=== PATIENT | male | born 1960 | race Caucasian/White ===

== ENCOUNTER 2023-10-21 23:03 | Inpatient (IN) | payer OTHER ==
[~2023-10-21] VITALS: Ht 190.5 cm; Wt 72.6 kg
[~2023-10-21 23:03] MED LIST: AMLO5TAB4 PO; ASPI-1026 PO; ATOR40TA69 PO; CLOP-31 PO; CYAN-52 PO; FAMO-136 PO; FOLI1 PO
[2023-10-21 23:54] LABS: CREATININE 1.4 mg/dL (0.5-1.3); POTASSIUM 3.1 mmol/L (3.5-5.1)
[2023-10-22] VITALS (14 sets, daily range): BP systolic 122–154; BP diastolic 57–92; PULSE 55–78; RESP 18–20; O2SAT 97–100
[2023-10-22] LABS: BASOPHILS % (AUTO) 0.8 % (0.0-5.0); EOSINOPHILS # (AUTO) 2.11 K/uL (0.00-0.70); EOSINOPHILS % (AUTO) 8.9 % (0.0-8.0); IMMATURE GRANULOCYTE ABSOLUTE 0.15 K/uL (0-1); INR 1.06 (0.85-1.15); LYMPHOCYTES # (AUTO) 3.4 K/uL (1.0-4.8); LYMPHOCYTES % (AUTO) 14.3 % (21.0-51.0); MEAN CORPUSCULAR HGB CONC 25.7 g/dL (32.0-36.0); MEAN CORPUSCULAR VOLUME 58.3 fL (79-99); MONOCYTES # (AUTO) 2.1 K/uL (0.1-1.0); MONOCYTES % (AUTO) 8.8 % (3.0-13.0); NEUTROPHILS # (AUTO) 15.7 K/uL (1.8-7.7); NEUTROPHILS % (AUTO) 66.6 % (40.0-77.0); NUCLEATED RED BLOOD CELLS 34.5 % (0.0-0.19); PROTHROMBIN TIME 12.4 SEC (9.6-11.6); RED BLOOD CELL COUNT(AUTO) 3.21 MIL/uL (4.50-6.20); RED CELL DISTRIBUTION WIDTH 23.3 % (11.0-15.5); WHITE BLOOD COUNT (AUTO) 23.6 K/uL (4.8-10.8)
[2023-10-22 00:02] LABS: HEMATOCRIT 18.7 % (42-54); PLATELET COUNT (AUTO) 1295 K/uL (130-400)
[2023-10-22] MEDS: MORPHINE 2 MG SYG IVP ONE (00:27)
[2023-10-22 00:36] LABS: EOSINOPHILS % (MANUAL) 9 % (1-6); LYMPHOCYTES % (MANUAL) 12 % (22-44); MONOCYTES % (MANUAL) 1 % (2-9); SEGMENTED NEUTROPHILS % 78 % (40-70); TOTAL CELLS COUNTED 100
[2023-10-22 00:37] LABS: MAN.DIFF COMMENT-IMPRESSION MANUAL DIFFERENTIAL
[2023-10-22 00:39] LABS: PLATELET MORPHOLOGY COMMENT INCREASED
[2023-10-22 00:44] LABS: BASOPHILS # (AUTO) 0.17 K/uL (0.00-0.20); BASOPHILS % (AUTO) 0.7 % (0.0-5.0); EOSINOPHILS # (AUTO) 2.32 K/uL (0.00-0.70); EOSINOPHILS % (AUTO) 9.7 % (0.0-8.0); IMMATURE GRANULOCYTE ABSOLUTE 0.15 K/uL (0-1); LYMPHOCYTES # (AUTO) 2.8 K/uL (1.0-4.8); LYMPHOCYTES % (AUTO) 11.8 % (21.0-51.0); MEAN CORPUSCULAR HEMOGLOBIN 14.8 pg (27.0-33.0); MEAN CORPUSCULAR HGB CONC 26.3 g/dL (32.0-36.0); MEAN CORPUSCULAR VOLUME 56.4 fL (79-99); MONOCYTES # (AUTO) 2.2 K/uL (0.1-1.0); MONOCYTES % (AUTO) 9.1 % (3.0-13.0); NEUTROPHILS # (AUTO) 16.3 K/uL (1.8-7.7); NEUTROPHILS % (AUTO) 68.1 % (40.0-77.0); NUCLEATED RED BLOOD CELLS 34.6 % (0.0-0.19); RED CELL DISTRIBUTION WIDTH 23.5 % (11.0-15.5); WHITE BLOOD COUNT (AUTO) 23.9 K/uL (4.8-10.8)
[2023-10-22 00:45] LABS: HEMATOCRIT 18.6 % (42-54); PLATELET COUNT (AUTO) 1337 K/uL (130-400)
[2023-10-22 00:52] LABS: APPEARANCE,URINE CLEAR (CLEAR); BILIRUBIN,URINE NEGATIVE (NEGATIVE); COLOR,URINE COLORLESS (YELLOW); GLUCOSE, URINE (UA) NEGATIVE (NEGATIVE); KETONES,URINE NEGATIVE (NEGATIVE); LEUKOCYTE ESTERASE ,URINE NEGATIVE Leu/uL (NEGATIVE); NITRATE,URINE NEGATIVE (NEGATIVE); OCCULT BLOOD,URINE NEGATIVE (NEGATIVE); PH,URINE 5.5 (5.0-8.0); PROTEIN,URINE NEGATIVE (NEGATIVE); UROBILINOGEN,URINE 0.2 mg/dL (0.2-1.0)
[2023-10-22 00:58] LABS: RBC,URINE 0-1 /HPF (0-1)
[2023-10-22] MEDS ORDERED: TRAMADOL HCL 50 MG TABLET PO PRN (02:30)
[2023-10-22] MEDS ORDERED: HYDRALAZINE 20MG/ML VIAL IV PRN (02:30)
[2023-10-22] MEDS ORDERED: GUAIFENESIN-DM 200/20 MG 10 ML PO PRN (02:30)
[2023-10-22] MEDS ORDERED: MAGNESIUM 2GM PREMIX 50ML 50 ML IV PRN (02:30)
[2023-10-22] MEDS ORDERED: FAMOTIDINE 20MG VIAL IV PRN (02:30)
[2023-10-22] MEDS ORDERED: ACETAMINOPHEN 325 MG TAB PO PRN ×3 (02:30)
[2023-10-22] MEDS ORDERED: DiphenhydrAMINE HCL 50 MG/ML VIAL IV PRN (02:30)
[2023-10-22] MEDS ORDERED: ONDANSETRON 4MG INJ IV PRN (02:30)
[2023-10-22] MEDS ORDERED: NITROGLYCERIN 0.4 MG SL TAB SL PRN (02:30)
[2023-10-22] MEDS ORDERED: LACTULOSE 20 GM/30 ML UDCUP PO PRN (02:30)
[2023-10-22] MEDS ORDERED: ZOLPIDEM TARTRATE 5 MG TAB PO PRN (02:30)
[2023-10-22] MEDS ORDERED: ALBUTEROL 0.083% 2.5 MG/3 ML INH IH PRN (02:30)
[2023-10-22] MEDS ORDERED: MORPHINE 2 MG SYG IVP PRN (02:30)
[2023-10-22] MEDS ORDERED: MAG/ALUM/SIMETH 30 ML UDCUP PO PRN (02:30)
[2023-10-22] MEDS ORDERED: KETOROLAC 15MG/ML VIAL (15MG/ML) IV PRN (02:30)
[2023-10-22] MEDS: PANTOPRAZOLE 40 MG/VIAL IVP ONE (03:09)
[2023-10-22] MEDS: METOCLOPRAMIDE 10 MG/2 ML VIAL IVP ONE (03:09)
[2023-10-22] MEDS: CEFTRIAXONE 1G VIAL IVPB ONE (03:10)
[2023-10-22] MEDS: CEFTRIAXONE 1G VIAL IV SCH (04:49)
[2023-10-22] MEDS: 0.9%NACL 1000ML 1,000 ML IV SCH (04:49)
[2023-10-22] MEDS: PANTOPRAZOLE 40MG INJ 80 MG in 0.9%NACL 100ML 100 ML IV SCH ×2 (04:50→11:56)
[2023-10-22 05:21] LABS: HEMOGLOBIN A1C 5.4 % (4.0-6.0)
[2023-10-22] MEDS: OXYCODONE/ACETAMIN 5/325MG TAB PO PRN (05:49)
[2023-10-22] MEDS: INSULIN HUMULIN R 100 UNIT/ML 3ML SQ SCH (07:30)
[2023-10-22] MEDS: CYANOCOBALAMIN (VITAMIN B-12) 1,000 MCG TABLET PO SCH (08:45)
[2023-10-22] MEDS: FAMOTIDINE 20MG TAB PO SCH (08:46)
[2023-10-22] MEDS: AMLODIPINE 5 MG TAB PO SCH (08:46)
[2023-10-22] MEDS: FOLIC ACID 1 MG TABLET PO SCH (08:46)
[2023-10-22 10:13] LABS: BASOPHILS # (AUTO) 0.22 K/uL (0.00-0.20); BASOPHILS % (AUTO) 1.1 % (0.0-5.0); EOSINOPHILS # (AUTO) 2.49 K/uL (0.00-0.70); EOSINOPHILS % (AUTO) 11.9 % (0.0-8.0); HEMATOCRIT 23.5 % (42-54); IMMATURE GRANULOCYTE ABSOLUTE 0.11 K/uL (0-1); LYMPHOCYTES # (AUTO) 3.1 K/uL (1.0-4.8); LYMPHOCYTES % (AUTO) 14.8 % (21.0-51.0); MEAN CORPUSCULAR HEMOGLOBIN 17.5 pg (27.0-33.0); MEAN CORPUSCULAR HGB CONC 28.1 g/dL (32.0-36.0); MEAN CORPUSCULAR VOLUME 62.3 fL (79-99); MONOCYTES # (AUTO) 1.7 K/uL (0.1-1.0); NEUTROPHILS # (AUTO) 13.3 K/uL (1.8-7.7); NEUTROPHILS % (AUTO) 63.7 % (40.0-77.0); NUCLEATED RED BLOOD CELLS 34.8 % (0.0-0.19); RED BLOOD CELL COUNT(AUTO) 3.77 MIL/uL (4.50-6.20); RED CELL DISTRIBUTION WIDTH 28.7 % (11.0-15.5)
[2023-10-22 10:58] LABS: PLATELET COUNT (AUTO) 1210 K/uL (130-400)
[2023-10-22 11:15] LABS: AMYLASE 30 U/L (25-115); CREATINE KINASE, TOTAL 147 U/L (21-232)
[2023-10-22] MEDS ORDERED: COMPOUND IV REFRIGERATED 1 EACH IVSOLN MISC PRN (11:30)
[2023-10-22] MEDS ORDERED: COMPOUND IV MISC 1 EACH IVSOLN MISC PRN (11:30)
[2023-10-22 14:29] LABS: AMPHET/METH SCREEN,URINE NEGATIVE (NEGATIVE); BARBITURATE SCREEN, URINE NEGATIVE (NEGATIVE); BENZODIAZEPINES SCREEN,URINE NEGATIVE (NEGATIVE); CANNABINOID SCREEN,URINE NEGATIVE (NEGATIVE); COCAINE SCREEN,URINE POSITIVE (NEGATIVE); OPIATE SCREEN,URINE NEGATIVE (NEGATIVE); PHENCYCLIDINE SCREEN,URINE NEGATIVE (NEGATIVE)
[2023-10-22] MEDS ORDERED: POTASSIUM CHLORIDE 10% ELIXIR 20 MEQ/15 ML UDCUP PO PRN (16:00)
[2023-10-22] MEDS ORDERED: POTASSIUM CHLORIDE 20MEQ/100ML 100 ML IV PRN (16:00)
[2023-10-22] MEDS: KCL 20 MEQ ERTAB PO PRN (16:27)
[2023-10-22] MEDS: IPRATROPIUM/ALBUTEROL SULFATE 3 ML SOLUTION IH SCH (18:30)
[2023-10-22 18:33] LABS: BASOPHILS # (AUTO) 0.22 K/uL (0.00-0.20); BASOPHILS % (AUTO) 1.2 % (0.0-5.0); EOSINOPHILS # (AUTO) 2.41 K/uL (0.00-0.70); EOSINOPHILS % (AUTO) 12.8 % (0.0-8.0); HEMATOCRIT 28.5 % (42-54); IMMATURE GRANULOCYTE ABSOLUTE 0.08 K/uL (0-1); LYMPHOCYTES # (AUTO) 2.4 K/uL (1.0-4.8); LYMPHOCYTES % (AUTO) 12.6 % (21.0-51.0); MEAN CORPUSCULAR HEMOGLOBIN 18.5 pg (27.0-33.0); MEAN CORPUSCULAR HGB CONC 27.7 g/dL (32.0-36.0); MEAN CORPUSCULAR VOLUME 66.6 fL (79-99); MONOCYTES # (AUTO) 1.9 K/uL (0.1-1.0); MONOCYTES % (AUTO) 9.9 % (3.0-13.0); NEUTROPHILS # (AUTO) 11.9 K/uL (1.8-7.7); NEUTROPHILS % (AUTO) 63.1 % (40.0-77.0); NUCLEATED RED BLOOD CELLS 35.2 % (0.0-0.19); RED BLOOD CELL COUNT(AUTO) 4.28 MIL/uL (4.50-6.20); RED CELL DISTRIBUTION WIDTH 30.6 % (11.0-15.5); WHITE BLOOD COUNT (AUTO) 18.9 K/uL (4.8-10.8)
[2023-10-22 18:39] LABS: PLATELET COUNT (AUTO) 1224 K/uL (130-400)
[2023-10-22] MEDS ORDERED: IOHEXOL-350 75 ML VIAL IV ONE (18:55)
[2023-10-22] MEDS: ATORVASTATIN 40 MG TABLET PO SCH (20:51)
[2023-10-23] VITALS (9 sets, daily range): BP systolic 131–140; BP diastolic 71–83; PULSE 65–74; RESP 18–22; O2SAT 96–97
[2023-10-23 03:53] LABS: BASOPHILS # (AUTO) 0.26 K/uL (0.00-0.20); BASOPHILS % (AUTO) 1.2 % (0.0-5.0); EOSINOPHILS # (AUTO) 2.76 K/uL (0.00-0.70); EOSINOPHILS % (AUTO) 12.7 % (0.0-8.0); HEMATOCRIT 25.5 % (42-54); IMMATURE GRANULOCYTE ABSOLUTE 0.12 K/uL (0-1); LYMPHOCYTES # (AUTO) 2.5 K/uL (1.0-4.8); LYMPHOCYTES % (AUTO) 11.3 % (21.0-51.0); MEAN CORPUSCULAR HEMOGLOBIN 18.4 pg (27.0-33.0); MEAN CORPUSCULAR VOLUME 63.3 fL (79-99); MONOCYTES # (AUTO) 1.8 K/uL (0.1-1.0); MONOCYTES % (AUTO) 8.3 % (3.0-13.0); NEUTROPHILS # (AUTO) 14.3 K/uL (1.8-7.7); NEUTROPHILS % (AUTO) 65.9 % (40.0-77.0); NUCLEATED RED BLOOD CELLS 28.1 % (0.0-0.19); RED BLOOD CELL COUNT(AUTO) 4.03 MIL/uL (4.50-6.20); RED CELL DISTRIBUTION WIDTH 29.6 % (11.0-15.5); WHITE BLOOD COUNT (AUTO) 21.7 K/uL (4.8-10.8)
[2023-10-23 04:04] LABS: PLATELET COUNT (AUTO) 1009 K/uL (130-400)
[2023-10-23] MEDS: CEFTRIAXONE 2GM VIAL IVPB SCH (04:13)
[2023-10-23 04:26] LABS: ALBUMIN 2.9 g/dL (3.5-5.0); BILIRUBIN,DIRECT 0.1 mg/dL (0.0-0.3); BILIRUBIN,TOTAL 0.6 mg/dL (0.2-1.0); MAGNESIUM 2.1 mg/dL (1.80-2.40); THYROID STIMULATING HORMONE 0.86 uIU/mL (0.36-3.74)
[2023-10-23 05:07] LABS: BASOPHILS % (MANUAL) 1 % (0-2); EOSINOPHILS % (MANUAL) 11 % (1-6); LYMPHOCYTES % (MANUAL) 17 % (22-44); MAN.DIFF COMMENT-IMPRESSION MANUAL DIFFERENTIAL; MONOCYTES % (MANUAL) 6 % (2-9); SEGMENTED NEUTROPHILS % 65 % (40-70); TOTAL CELLS COUNTED 100
[2023-10-23 05:09] LABS: PLATELET MORPHOLOGY COMMENT INCREASED
[2023-10-23] MEDS: CYANOCOBALAMIN (VITAMIN B-12) 1000 MCG/ML 1ML VIAL IM SCH (09:28)
[2023-10-23] MEDS ORDERED: LACE ASSESSMENT (SCORE > 11) MISC SCH (13:30)
== END 2023-10-23 13:50 | disposition left against medical advice (07) | DRG 811 ==
LOC: EDH 23:03 → EDHIP 10-22 02:10 → 2DH 10-22 07:20
PROVIDERS: ADMIT Hospitalist; ATTEND Hospitalist
PROC: 30233N1 Transfusion of Nonautologous Red Blood Cells into Peripheral Vein, Percutaneous Approach (ICD-10-PCS; principal; 2023-10-22)
DX: D50.9 Iron deficiency anemia, unspecified (principal); E43 Unspecified severe protein-calorie malnutrition; N17.9 Acute kidney failure, unspecified; G45.9 Transient cerebral ischemic attack, unspecified; Z59.00 Homelessness unspecified; I10 Essential (primary) hypertension; M25.552 Pain in left hip; D75.839 Thrombocytosis, unspecified; E53.8 Deficiency of other specified B group vitamins; F14.10 Cocaine abuse, uncomplicated; F31.9 Bipolar disorder, unspecified; F17.210 Nicotine dependence, cigarettes, uncomplicated; I25.2 Old myocardial infarction; K52.9 Noninfective gastroenteritis and colitis, unspecified; Z90.81 Acquired absence of spleen; Z91.199 Patient's noncompliance with other medical treatment and regimen due to unspecified reason; Z86.73 Personal history of transient ischemic attack (TIA), and cerebral infarction without residual deficits; Z68.20 Body mass index [BMI] 20.0-20.9, adult
CPT/HCPCS: 36415; 70450; 70498; 70551; 71045; 73521; 74176; 80048; 80076; 80177; 80305; 81001; 81206; 82140; 82150; 82550; 82948; 83036; 83605; 83615; 83735; 83880; 84145; 84443; 84484; 85025; 85378; 85610; 85730; 86850; 86900; 86901; 86923; 87040; 87088; 93306; 93880; 93970; 94640; 94664; 96375; C9113; G0378; J0696; J2270; J2765; J3420; P9016; Q9967